=== PATIENT | male | born 1955 | race Caucasian/White ===

== ENCOUNTER 2024-11-11 10:09 | Day surgery (SDC) | payer MEDICARE ==
[2024-11-10 12:57] VITALS: BMI 25.5
[2024-11-11 10:54] LABS: #Basophils 0.05 10x3/uL (0.0-0.2); #Eosinophils 0.28 10x3/uL (0.0-0.5); #Monocytes 0.55 10x3/uL (0.0-1.1); #Neutrophils 4.88 10x3/uL (1.5-8.4); %Basophils 0.7 % (0.0-2.0); %Eosinophils 3.9 % (0.0-6.0); %Lymphocytes 19.2 % (18.0-47.0); %Monocytes 7.7 % (0.0-10.0); %Neutrophils 67.9 % (40.0-75.0); Hematocrit 34.4 % (38.8-50.0); Hemoglobin 10.8 g/dL (13.5-17.5); Mean Corpuscular Hemoglobin 30.7 pg (27.0-33.0); Mean Corpuscular Volume 97.7 fL (81.2-95.1); Platelet Count 219 10x3/uL (150-450); Red Blood Cell (RBC) Count 3.52 10x6/uL (4.32-5.72); White Blood Cell (WBC) Count 7.18 10x3/uL (3.5-10.5)
[2024-11-11 11:10] LABS: Anion Gap 18 mmol/L (10-20); BUN (Urea Nitrogen) 27 mg/dL (8.4-25.7); Calc. Creatinine Clearance 18 mL/min (70-130); Calcium 8.9 mg/dL (7.8-10.44); Carbon Dioxide 24 mmol/L (23-31); Chloride 98 mmol/L (98-107); Glucose 126 mg/dL (80-115); Potassium 4.5 mmol/L (3.5-5.1); Sodium 135 mmol/L (136-145)
[2024-11-11] MEDS ORDERED: Ondansetron PF 4 MG/2 ML Vial ONE (11:38)
[2024-11-11] MEDS ORDERED: PROPOFOL 20 ML ONE ×2 (11:38→12:35)
[2024-11-11] MEDS ORDERED: Bupivacaine HCl 0.5%/Epinephrine 1:200,000/PF 30 ml Vial ONE (11:52)
[2024-11-11] MEDS ORDERED: CEFAZOLIN 2 GM VIAL ONE (11:59)
[2024-11-11] MEDS ORDERED: hydrALAZINE 20 MG/ML VIAL ONE (15:26)
== END 2024-11-11 16:00 | disposition home or self-care (01) ==
LOC: CSHSDC 10:09
PROVIDERS: ATTEND Podiatrist Foot & Ankle Surgery
PROC: 0Y6P0Z0 Detachment at Right 1st Toe, Complete, Open Approach (ICD-10-PCS; principal; 2024-11-11)
DX: M86.171 Other acute osteomyelitis, right ankle and foot (principal)
CPT/HCPCS: 28820; 73620; 80048; 82962; 85025; J0360; J1100; J2250; J2405; J2704; 36415; 36416; 88305; 88311; J3010